=== PATIENT | male | born 1980 | race Caucasian/White ===

== ENCOUNTER 2016-11-03 23:06 | Inpatient (IN) | payer MEDICAID, OTHER ==
[~2016-11-03] VITALS: Ht 170.2 cm; Wt 71.3 kg
[2016-11-04] MEDS ORDERED: ONDANSETRON 4 MG INJ IV STA (01:13)
[2016-11-04] MEDS ORDERED: morphine 4 MG/ML VIAL IV STA ×2 (01:13→04:01)
[2016-11-04] MEDS ORDERED: SOD CHLORIDE 0.9% 1,000 ML IV STA (01:13)
--- NOTE | 2016-11-04 01:28 | ERD ---
ER Documentation Chief Complaint Date/Time DATE: 11/04/16 TIME: 01:26 Chief Complaint LOWER ABD PAIN FOR THE PAST 3 DAYS. NAUSEA NO VOMTIING. MILD DYSURIA HPI 36-year-old male presents here in emergency department for complaints of lower abdominal pain nausea and vomiting started 3 days ago. Patient is a chronic alcoholic drinker, drinks 3-4 bottles a 24 ounce beer every day. Patient is complaining of abdominal pain, cramping pain, 6/10 scale, accompanied with nausea vomiting. Is any diarrhea constipation dysuria or hematuria. Patient denies any dizziness. Patient denies any fever or chills. ROS All systems reviewed and are negative except as per history of present illness. Medications Home Meds Reported Medications [none] Unknown Strength No Conflict Check 11/04/16 Allergies Allergies: Coded Allergies: No Known Allergy (Unverified , 11/04/16) PMhx/Soc Hx Miscellaneous Medical Probl: Yes (pancreatitis) Hx Alcohol Use: Yes (daily ) Hx Substance Use: No Hx Tobacco Use: No Smoking Status: Never smoker FmHx Family History: No coronary disease, No diabetes, No other Physical Exam Vitals Vital Signs Date Time Temp Pulse Resp B/P Pulse Ox O2 Delivery O2 Flow Rate FiO2 11/03/16 23:09 97.8 68 21 162/91 100 Physical Exam GENERAL: The patient is well developed and appropriate for usual state of health, in no apparent distress. CHEST: Clear to auscultation bilaterally. There are no rales, wheezes or rhonchi. HEART: Regular rate and rhythm. No murmurs, clicks, rubs or gallops. No S3 or S4. ABDOMEN: Soft, nontender and nondistended. Good bowel sounds. No rebound or guarding. No gross peritonitis. No gross organomegaly or masses. No Carbone sign or McBurney point tenderness. BACK: No midline or flank tenderness. EXTREMITIES: Equal pulses bilaterally. There is no peripheral clubbing, cyanosis or edema. No focal swelling or erythema. Full range of motion. Grossly neurovascularly intact. NEURO: Alert and oriented. Cranial nerves 2-12 intact. Motor strength in all 4 extremities with 5/5 strength. Sensation grossly intact. Normal speech and gait. SKIN: There is no apparent rash or petechia. The skin is warm and dry. HEMATOLOGIC AND LYMPHATIC: There is no evidence of excessive bruising or lymphedema. No gross cervical, axillary, or inguinal lymphadenopathy. Result Diagram: 11/04/16 0145 11/04/16 0145 Results 24 hrs Laboratory Tests Test 11/04/16 01:45 Alanine Aminotransferase (ALT/SGPT) 75IU/L Albumin 4.0g/dl Albumin/Globulin Ratio 1.33 Alkaline Phosphatase 74IU/L Anion Gap 16 Aspartate Amino Transf (AST/SGOT) 50IU/L Basophils # 0.010^3/ul Basophils % 0.1% Blood Urea Nitrogen 9mg/dl Calcium Level 8.5mg/dl Carbon Dioxide Level 26mmol/L Chloride Level 104mmol/L Creatinine 0.69mg/dl Direct Bilirubin 0.00mg/dl Eosinophils # 0.010^3/ul Eosinophils % 0.1% Globulin 3.00g/dl Glucose Level 115mg/dl Hematocrit 45.4% Hemoglobin 16.9g/dl Indirect Bilirubin 0.7mg/dl Lipase Pending Lymphocytes # 0.810^3/ul Lymphocytes % 5.6% Mean Corpuscular Hemoglobin 32.1pg Mean Corpuscular Hemoglobin Concent 37.2g/dl Mean Corpuscular Volume 86.1fl Mean Platelet Volume 11.0fl Monocytes # 0.510^3/ul Monocytes % 3.7% Neutrophils # 13.010^3/ul Neutrophils % 90.2% Nucleated Red Blood Cells # 0.010^3/ul Nucleated Red Blood Cells % 0.0/100WBC Platelet Count 56883^3/UL Potassium Level 3.7mmol/L Red Blood Count 5.2710^6/ul Red Cell Distribution Width 12.4% Sodium Level 142mmol/L Total Bilirubin 0.7mg/dl Total Protein 7.0g/dl Urine Bilirubin 1+ Urine Clarity CLEAR Urine Color YELLOW Urine Glucose NEGATIVE% Urine Hemoglobin TRACE Urine Ictotest Pending Urine Ketones 3+ Urine Leukocyte Esterase NEGATIVE Urine Microscopic RBC Pending Urine Microscopic WBC Pending Urine Nitrite NEGATIVE Urine Specific [place] 1.025 Urine Total Protein 2+ Urine Urobilinogen 4.0 E.U./dL Urine pH 6.0 White Blood Count 14.410^3/ul Current Medications Medications (Trade) Dose Ordered Sig/Florentin Route PRN Reason Start Time Stop Time Status Last Admin Dose Admin Sodium Chloride (NS) 1,000 ml @ 1,000 mls/hr Q1H STAT IV 11/04/16 01:13 11/04/16 02:12 DC 11/04/16 01:49 Morphine Sulfate (morphine) 4 mg ONCE STAT IV 11/04/16 01:13 11/04/16 01:15 DC 11/04/16 01:49 Ondansetron HCl (Zofran Inj) 4 mg ONCE STAT IV 11/04/16 01:13 11/04/16 01:15 DC 11/04/16 01:49 Patient was given medication for pain here in emergency department, after treatment, patient verbalized feeling much better. Patient's pain is improved.Patient was given Zofran here in the emergency department. After treatment, patient was able to tolerate po fluids here in the emergency department without any vomiting. There is no signs and symptoms of dehydration. Normal saline IV bolus was given here in emergency department for rehydration, patient tolerated IV fluids. PROCEDURE: CT Abdomen and pelvis without contrast. CLINICAL INDICATION: Abdominal pain. TECHNIQUE: CT scan of the abdomen and pelvis was performed on a multi- detector high-resolution CT scanner. Contiguous axial images were obtained from the lung bases to the ischial tuberosities without intravenous contrast. Coronal and sagittal reformatted images were also obtained. Images were reviewed on the PACS workstation. One or more of the following dose reduction techniques were used: - Automated exposure control. - Adjustment of the mA and/or kV according to patient size. - Use of iterative reconstruction technique. Exam CTD/vol = 7.56 mGy. Total exam DLP = 459.15 mGy-cm. COMPARISON: None. FINDINGS: Evaluation of the lung bases demonstrates mild bibasilar atelectasis. Abdomen: The liver is normal in size and diffusely low in attenuation consistent with fatty infiltration. There is no focal mass or dilatation of the biliary tree. The gallbladder is not distended. The pancreas is diffusely edematous with moderate surrounding stranding and mild free fluid extending along the left anterior pararenal spaces and pericolic gutter. The spleen and bilateral adrenal glands are within normal limits. Bilateral kidneys are normal in size with no contour deforming mass identified. There is no radiopaque renal or ureteral calculus identified. There is no hydronephrosis or hydroureter. There is no retroperitoneal adenopathy. The abdominal aorta is of normal caliber. There is no abnormal bowel wall thickening or distension. There is no bowel obstruction or free air. A normal appendix is partially visualized. There is no diverticulosis or diverticulitis. Pelvis: The bladder is unremarkable. There is moderate pelvic free fluid. The prostate and seminal vesicles are within normal limits. There is no significant pelvic adenopathy. Evaluation of the osseous structures demonstrates no suspicious lytic or blastic lesion. IMPRESSION: Pancreatitis with moderate surrounding stranding and mild free fluid. Fatty infiltration of the liver. Moderate pelvic free fluid. Mild bibasilar atelectasis. .Aleksandr Diego MD, Date Time Electronically viewed and signed by .Aleksandr Diego MD, MD on 11/04/2016 02:27 .T/ CC: TESSA MELVIN NP Procedures/MDM Medical Decision Making: Patient has acute pancreatitis, most likely from drinking alcohol, patient will be admitted to the hospital for further management and treatment. Patient will be transferred to ER 1 for further evaluation and management and possible admission, presented the case to my attending physician Dr Abbasi, will facilitate patient's admission. Departure Diagnosis: Primary Impression: Acute pancreatitis Pancreatitis type: alcohol induced Acute pancreatitis complication: unspecified Qualified Code: K85.20 - Alcohol-induced acute pancreatitis, unspecified complication status Condition: Fair TESSA MELVIN NP Nov 04, 2016 01:28
[2016-11-04 02:25] LABS: ADD SCAN DIFF NO
[2016-11-04 02:27] LABS: BASOPHILS % 0.1 % (0.0-2.0); EOSINOPHILS % 0.1 % (0.0-7.0); HEMATOCRIT 45.4 % (42.0-52.0); HEMOGLOBIN 16.9 g/dl (14.0-18.0); LYMPHOCYTES # 0.8 10^3/ul (0.8-2.9); LYMPHOCYTES % 5.6 % (15.0-51.0); MEAN CORPUSCULAR HEMOGLOBIN 32.1 pg (29.0-33.0); MEAN CORPUSCULAR HGB CONC 37.2 g/dl (32.0-37.0); MEAN CORPUSCULAR VOLUME 86.1 fl (82.0-101.0); MONOCYTE # 0.5 10^3/ul (0.3-0.9); MONOCYTES % 3.7 % (0.0-11.0); NEUTROPHILS % 90.2 % (39.0-77.0); PLATELET COUNT 217 10^3/UL (140-415); RED BLOOD COUNT 5.27 10^6/ul (4.70-6.10); RED CELL DISTRIBUTION WIDTH 12.4 % (11.5-14.5); WHITE BLOOD COUNT 14.4 10^3/ul (4.8-10.8)
--- NOTE | 2016-11-04 02:28 | RADRPT ---
PROCEDURE: CT Abdomen and pelvis without contrast. CLINICAL INDICATION: Abdominal pain. TECHNIQUE: CT scan of the abdomen and pelvis was performed on a multi-detector high-resolution CT scanner. Contiguous axial images were obtained from the lung bases to the ischial tuberosities wit hout intravenous contrast. Coronal and sagittal reformatted images were also obtained. Images were reviewed on the PACS workstation. One or more of the following dose reduction techniques were used: - Automated exposure control. - Adjustment of the mA and/or kV according to patient size. - Use of iterative reconstruction technique. Exam CTD/vol = 7.56 mGy. Total exam DLP = 459.15 mGy-cm. COMPARISON: None. FINDINGS: Evaluation of the lung bases demonstrates mild bibasilar atelectasis. Abdomen: The liver is normal in size and diffusely low in attenuation consistent with fatty infiltr ation. There is no focal mass or dilatation of the biliary tree. The gallbladder is not distended. The pancreas is diffusely edematous with moderate surrounding stranding and mild free fluid extend ing along the left anterior pararenal spaces and pericolic gutter. The spleen and bilateral adrenal glands are within normal limits. Bilateral kidneys are normal in size with no contour deforming ma ss identified. There is no radiopaque renal or ureteral calculus identified. There is no hydroneph rosis or hydroureter. There is no retroperitoneal adenopathy. The abdominal aorta is of normal javier iber. There is no abnormal bowel wall thickening or distension. There is no bowel obstruction or free air . A normal appendix is partially visualized. There is no diverticulosis or diverticulitis. Pelvis: The bladder is unremarkable. There is moderate pelvic free fluid. The prostate and semina l vesicles are within normal limits. There is no significant pelvic adenopathy. Evaluation of the osseous structures demonstrates no suspicious lytic or blastic lesion. IMPRESSION: Pancreatitis with moderate surrounding stranding and mild free fluid. Fatty infiltration of the liver. Moderate pelvic free fluid. Mild bibasilar atelectasis. .Aleksandr Diego MD, MD Date Time Electronically viewed and signed by .Aleksandr Diego MD, MD on 11/04/2016 02:27 .T/
[2016-11-04 02:59] LABS: ADD UMIC YES; URINE BILIRUBIN (Dip) 1+ (NEGATIVE); URINE BLOOD (Dip) TRACE (NEGATIVE); URINE COLOR YELLOW (YELLOW); URINE GLUCOSE (Dip) NEGATIVE (NEGATIVE); URINE KETONES (Dip) 3+ (NEGATIVE); URINE LEUKOCYTE ESTERASE (Dip) NEGATIVE (NEGATIVE); URINE NITRITE (Dip) NEGATIVE (NEGATIVE); URINE TOTAL PROTEIN (Dip) 2+ (NEGATIVE); URINE UROBILINOGEN (Dip) 4.0 E.U./dL (0.1-1.0)
[2016-11-04 03:23] LABS: POTASSIUM 3.7 mmol/L (3.5-5.1)
[2016-11-04 03:25] LABS: CREATININE 0.69 mg/dl (0.61-1.24)
[2016-11-04 03:26] LABS: ALBUMIN/GLOBULIN RATIO 1.33; BILIRUBIN,INDIRECT 0.7 mg/dl (0-1.1); BILIRUBIN,TOTAL 0.7 mg/dl (0.2-1.3); CALCIUM 8.5 mg/dl (8.4-10.2)
[2016-11-04 04:09] LABS: BACTERIA,URINE FEW; ICTOTEST NEGATIVE (NEGATIVE); MUCUS,URINE MANY; SQUAMOUS EPITHELIAL CELL,UR FEW
[2016-11-04] MEDS ORDERED: morphine 2 MG INJ IV PRN (08:30)
[2016-11-04] MEDS ORDERED: DOCUSATE SODIUM 100 MG CAP PO PRN (10:00)
[2016-11-04] MEDS ORDERED: ACETAMINOPHEN 325 MG TAB PO PRN (10:00)
[2016-11-04] MEDS ORDERED: NACL 0.9% 3 ML SYG IV SCH (10:00)
[2016-11-04 10:30] VITALS: TEMP 98
[2016-11-04] MEDS: morphine 2 MG INJ IV PRN ×4 (11:50→22:16)
[2016-11-04] MEDS: DEXTROSE 5%-0.45% NACL 1,000 ML IV SCH ×2 (11:50→23:00)
--- NOTE | 2016-11-04 11:56 | CONS ---
Date/Time of Note Date/Time of Note DATE: 11/04/16 TIME: 11:55 Assessment/Plan Assessment/Plan Additional Assessment/Plan Abdomina pain/nausea/vomiting Pancreatitis Rule out choledocholithiasis IVF Hydration Nausea and pain control NPO till pain free Review MRCP ERCP if clinically indicated, pt advised of R/B/A of procedure and she provides informed consent to proceed Monitor LFTs, amylase, lipase Recommend Surgery consult Alcohol abuse Management per Primary Encourage abstinence Further recommendations depend on clinical course Patient seen in collaboration with Dr. Mckenzie Consultation Date/Type/Reason Admit Date/Time Nov 04, 2016 at 05:36 Type of Consultation: Gastroenterology Reason for Consultation Pancreatitis Hx of Present Illness Mr.Juan Luna is a 36-year-old male that presented to the emergency room secondary to abdominal pain, nausea, vomiting. Patient stated the symptoms started 3 days ago and progressively got worse. Patient reports slight fever. Patient denies chills, hematochezia,, hematemesis, sick contacts versus. Patient does report alcohol consumption. Patient states he drinks about a sixpack of beer every day. Patient reports previous episode of abdominal pain nearly 4 months ago. Patient has a history of inpatient treatment for pancreatitis secondary to alcohol consumption. Patient denies other chronic condition. At bedside patient reports diffuse abdominal pain. MRCP in process. Social History Alcohol Use: heavy (6 pack per day) Smoking Status: Never smoker Exam/Review of Systems Vital Signs Vitals Vital Signs Date Time Temp Pulse Resp B/P Pulse Ox O2 Delivery O2 Flow Rate FiO2 11/04/16 10:30 98.0 71 18 160/90 98 Room Air Exam Constitutional: alert, oriented, well developed Psych: nl mood/affect Head: normocephalic Eyes: EOMI, nl conjunctiva, nl lids ENMT: nl external ears & nose, nl lips & teeth, nl nasal mucosa & septum Respiratory: clear to auscultation, normal air movement Cardiovascular: regular rate and rhythm Gastrointestinal: soft, diffuse tenderness Musculoskeletal: nl extremities to inspection Neurological: CELLOPHANE TESTER II-XII intact Results Result Diagram: 11/04/16 0145 11/04/16144 Results 24 hrs Laboratory Tests Test 11/04/16 01:45 Alanine Aminotransferase (ALT/SGPT) 75 H Albumin 4.0 Albumin/Globulin Ratio 1.33 Alkaline Phosphatase 74 Anion Gap 16 Aspartate Amino Transf (AST/SGOT) 50 H Basophils # 0.0 Basophils % 0.1 Blood Urea Nitrogen 9 Calcium Level 8.5 Carbon Dioxide Level 26 Chloride Level 104 Creatinine 0.69 Direct Bilirubin 0.00 Eosinophils # 0.0 Eosinophils % 0.1 Globulin 3.00 Glucose Level 115 Hematocrit 45.4 Hemoglobin 16.9 Indirect Bilirubin 0.7 Lipase 4586 H Lymphocytes # 0.8 Lymphocytes % 5.6 L Mean Corpuscular Hemoglobin 32.1 Mean Corpuscular Hemoglobin Concent 37.2 H Mean Corpuscular Volume 86.1 Mean Platelet Volume 11.0 H Monocytes # 0.5 Monocytes % 3.7 Neutrophils # 13.0 H Neutrophils % 90.2 H Nucleated Red Blood Cells # 0.0 Nucleated Red Blood Cells % 0.0 Platelet Count 217 Potassium Level 3.7 Red Blood Count 5.27 Red Cell Distribution Width 12.4 Sodium Level 142 Total Bilirubin 0.7 Total Protein 7.0 Urine Bacteria FEW Urine Bilirubin 1+ H Urine Clarity CLEAR Urine Color YELLOW Urine Glucose NEGATIVE Urine Hemoglobin TRACE Urine Ictotest NEGATIVE Urine Ketones 3+ H Urine Leukocyte Esterase NEGATIVE Urine Microscopic RBC 2-5 Urine Microscopic WBC 0-2 Urine Mucus MANY Urine Nitrite NEGATIVE Urine Specific [place] 1.025 Urine Squamous Epithelial Cells FEW Urine Total Protein 2+ H Urine Urobilinogen 4.0 E.U./dL H Urine pH 6.0 White Blood Count 14.4 H Medications Medications Current Medications Dextrose/Sodium Chloride (D5-1/2ns) 1,000 ml @ 75 mls/hr [id number] IV Last administered on 11/04/16 11:50; Admin Dose 75 MLS/HR; Start 11/04/16 at 09:40 Ondansetron HCl (Zofran Inj) 4 mg Q6H PRN IV NAUSEA AND/OR VOMITING; Start at 10:00 Acetaminophen (Tylenol Tab) 650 mg Q6H PRN PO PAIN LEVEL 1-3 OR FEVER; Start at 10:00 Morphine Sulfate (morphine) 2 mg Q4H PRN IV SEVERE PAIN LEVEL 7-10 Last administered on 11/04/16 11:50; Admin Dose 2 MG; Start 11/04/16 at 10:00 Docusate Sodium (Colace) 100 mg Q12H PRN PO CONSTIPATION; Start 11/04/16 at 10: 00 Pantoprazole 40 mg 40 mg DAILY@06 IV ; Start 11/05/16 at 06:00 Multivitamins/ Thiamine HCl/ Folic Acid/Sodium Chloride (Mvi-12 Adult/ Vitamin B1/Folic Acid/NS) 1,011.2 ml @ 100 mls/ hr DAILY@09 IVPB ; Start 11/05/16 at 09 :00 MARIA DE JESUS DEL VALLE Nov 04, 2016 11:56
[2016-11-04] MEDS: ONDANSETRON 4 MG INJ IV PRN (12:02)
[2016-11-04 12:30] VITALS: BP 143/87; PULSE 87; RESP 20; Ht 170.2 cm; Wt 71.3 kg
--- NOTE | 2016-11-04 15:54 | RADRPT ---
PROCEDURE: MRCP. CLINICAL INDICATION: Abdominal pain. Pancreatitis. TECHNIQUE: MRCP was performed. The following sequences were obtained: Three plane gradient echo localizers, coronal gradient echo images, breath hold axial T2-weighted fat saturation images, maris nal T2-weighted images, axial 3-D LAVA images, axial T2-weighted breath hold fast spin echo images, and 3-D coronal rotating MIP images of the biliary tree. COMPARISON: CT scan of the abdomen and pelvis done earlier the same day which demonstrated pancrea titis with surrounding edema and free fluid, and fatty liver. FINDINGS: The liver is normal in size. There is abnormal signal within the liver consistent with fatty metamo rphosis. There is no focal hepatic lesion The spleen is normal in size and homogeneous in signal intensity. There are no gallstones in the gallbladder. The biliary tree is not dilated. No intrahepatic nor extrahepatic biliary dilatation is present. The pancreatic duct is not dilated. There is pancreatitis with enlargement of the head and body of the pancreas, surrounding edema, and a small amount of adjacent fluid. The kidneys are grossly normal. The abdominal aorta is not dilated. IMPRESSION: 1. Fatty metamorphosis of the liver. 2. Normal bile ducts. 3. Acute pancreatitis. 4. Otherwise unremarkable study. RPTAT: QQ .Cornel Watson MD, MD Date Time Electronically viewed and signed by .Cornel Watson MD, on 11/04/2016 15:54 .R/
[2016-11-04] MEDS ORDERED: LORAZEPAM 2 MG INJ IV PRN (17:00)
--- NOTE | 2016-11-04 18:40 | HP ---
DATE OF ADMISSION: 11/04/2016 ENVIRONMENTAL HEALTH INSPECTOR: GI. CHIEF COMPLAINT: Abdominal pain with nausea and vomiting. HISTORY OF PRESENT ILLNESS: This is a 36-year-old gentleman with past medical history of pancreatit is/alcoholic pancreatitis and continues alcohol consumption, who presents to [facility] secondary to having 2 days of abdominal pain accompanied with nausea and yellowish emesis, not accompanied with any hematochezia or hematemesis. The patient upon arrival to the emergency room, was found to have lipase of 4586. He was treated with morphine, normal saline, and Zofran. He was admitted to Med/Surg for further evaluation and treatment. At this time, the patient continues to c omplain of having midepigastric pain. He denies having any chest pain, shortness of breath. Positi ve for nausea ____ vomiting. No headache, dizziness, lightheadedness. No change in visual acuity, diplopia, photophobia. No dysuria, hematuria, urgency, incontinence. No change in the color of sto ol. No neck pain, no restricted range of motion in upper or lower extremity nor his neck. No recen t travel history. No sick contact. He still admits that he drinks about a 6-pack of beer per day. He does not smoke. No illicit drugs, and does not drink any hard liquor. PAST MEDICAL AND SURGICAL HISTORY: 1. History of pancreatitis. 2. Continues alcohol consumption. MEDICATIONS: None. FAMILY HISTORY: Noncontributory. SOCIAL HISTORY: Positive for drinking a 6-pack of beer daily. No smoking, no illicit drugs. REVIEW OF SYSTEMS: As above per HPI, otherwise 12 review of systems has been found to be negative. PHYSICAL EXAMINATION: VITAL SIGNS: Temperature 99.0, pulse 87, respirations 20, blood pressure 143/____, oxygen 99% on ro om air. GENERAL APPEARANCE: The patient is lying in bed comfortably without any acute distress. He is awak e, alert, oriented. He is able to answer my questions properly. EYES AND ENT: Conjunctivae and lids are normal. Pupils are normal. Extraocular normal. Hearing gr ossly normal. Lips are normal. Oral mucosa is moist. NECK: Supple. Trachea is midline. No lymphadenopathy. RESPIRATORY: Effort is normal. Clear to auscultation bilaterally. CARDIOVASCULAR: Normal S1, S2. Regular rhythm and rate. No murmur, no bruits, no edema. Peripher al pulses, radial pulses palpable. Cap refill is normal. CHEST: Normal expansion of thorax during inspiration. GASTROINTESTINAL: Abdomen soft. Tenderness in the midepigastric and right upper quadrant. No guar ding, no rebound. GENITOURINARY: Deferred. MUSCULOSKELETAL: Upper and lower extremities within normal limits. Full range of motion, strength 5/5 both upper and lower extremities. NEUROLOGIC: Cranial nerves II through XII are grossly intact. PSYCHIATRIC: Normal judgment and insight. Alert and oriented x3. Mood and affect is normal. LABORATORY WORK AND IMAGING: WBC 14.4, hemoglobin 16.9, hematocrit 45.4, platelet 217. Sodium 142, potassium 3.7, chloride 104, bicarbonate 26, BUN 9, creatinine 0.69, glucose ____, calcium 8.5, AST 50, ALT 75, lipase 4586. CT abdomen and pelvis showed pancreatitis with moderate surrounding stran ding and mild free fluid. Fatty infiltration of the liver, moderate pelvic free fluid, mild basilar atelectasis. MRCP showed fatty metamorphosis of the liver, normal bile duct, acute pancreatitis. ASSESSMENT AND PLAN: 1. Alcoholic pancreatitis. Patient has been made n.p.o., IV fluid, pain medication. Patient has b een started on banana bag. Gastroenterology has been consulted. Alcohol cessation has been advised . 2. Alcohol dependency. The patient has been started on Ativan, Librium. Alcohol cessation has bee n advised. 3. Gastrointestinal prophylaxis, the patient has been started on proton pump inhibitor. 4. For deep venous thrombosis prophylaxis, on sequential compression devices. 5. I will continue to monitor patient closely. Further recommendations, management, and treatment as per clinical course. Dictated By: CHRISTY LACEY MD PN/NTS Conf#: [id number] DID#: [id number]
[2016-11-04 20:54] VITALS: BP 124/75; RESP 18
[2016-11-04] MEDS: PIPER-TAZO 3.375 GM IV (PMX) 100 ML IVPB SCH (21:07)
[2016-11-05] MEDS: morphine 2 MG INJ IV PRN ×6 (00:18→21:39)
[2016-11-05] MEDS: DEXTROSE 5%-0.45% NACL 1,000 ML IV SCH ×2 (04:23→20:53)
[2016-11-05] MEDS: PANTOPRAZOLE 40 MG INJ IV SCH (06:07)
[2016-11-05] MEDS: PIPER-TAZO 3.375 GM IV (PMX) 100 ML IVPB SCH ×3 (06:07→21:39)
[2016-11-05 07:30] VITALS: BP 113/65; RESP 20
[2016-11-05] MEDS ORDERED: INFLUENZA VIRUS VACCINE 0.5 ML (DISPENSING) IM* ONE (09:00)
--- NOTE | 2016-11-05 10:18 | PN ---
Date/Time of Note Date/Time of Note DATE: 11/05/16 TIME: 10:06 Assessment/Plan VTE Prophylaxis VTE Prophylaxis Intervention: SCD's Lines/Catheters IV Catheter Type (from Nrsg): Peripheral IV Assessment/Plan Assessment/Plan Abdomina pain/nausea/vomiting Pancreatitis IVF Hydration Nausea and pain control start with clear liquids Monitor LFTs, amylase, lipase Alcohol abuse Management per Primary Subjective 24 Hr Interval Summary Free Text/Dictation * course reviewed with nursing staff * Patient seen and examined * pain is improved considerably * Lipase improved from 4586 to 860 * MRCP * Fatty metamorphosis of the liver. . Normal bile ducts. Acute pancreatitis. Otherwise unremarkable study. Exam/Review of Systems Vital Signs Vitals Vital Signs Date Time Temp Pulse Resp B/P Pulse Ox O2 Delivery O2 Flow Rate FiO2 11/05/16 07:30 98.6 64 20 113/65 97 11/04/16 12:30 Room Air Intake and Output 11/04/16 11/04/16 11/05/16 14:59 22:59 06:59 Intake Total 400 ml 860 ml Output Total 300 ml 450 ml Balance 100 ml 410 ml Exam GENERAL APPEARANCE: The patient is lying in bed comfortably without any acute distress. He is awake, alert, oriented. He is able to answer my questions properly. RESPIRATORY: Effort is normal. Clear to auscultation bilaterally. CARDIOVASCULAR: Regular rhythm and rate. No murmur CHEST: Clear breath sounds ,no crackles GASTROINTESTINAL: Abdomen soft. Tenderness in the midepigastric and right upper quadrant. No guarding, no rebound. Results Result Diagram: 11/04/16 0145 11/04/16 0145 Medications Medications Current Medications Dextrose/Sodium Chloride (D5-1/2ns) 1,000 ml @ 75 mls/hr [id number] IV Last administered on 11/05/16 04:23; Admin Dose 75 MLS/HR; Start 11/04/16 at 09:40 Ondansetron HCl (Zofran Inj) 4 mg Q6H PRN IV NAUSEA AND/OR VOMITING Last administered on 11/04/16 12:02; Admin Dose 4 MG; Start 11/04/16 at 10:00 Acetaminophen (Tylenol Tab) 650 mg Q6H PRN PO PAIN LEVEL 1-3 OR FEVER; Start at 10:00 Morphine Sulfate (morphine) 2 mg Q4H PRN IV SEVERE PAIN LEVEL 7-10 Last administered on 11/05/16 08:39; Admin Dose 2 MG; Start 11/04/16 at 10:00 Docusate Sodium (Colace) 100 mg Q12H PRN PO CONSTIPATION; Start 11/04/16 at 10: 00 Pantoprazole 40 mg 40 mg DAILY@06 IV Last administered on 11/05/16 06:07; Admin Dose 40 MG; Start 11/05/16 at 06:00 Multivitamins/ Thiamine HCl/ Folic Acid/Sodium Chloride (Mvi-12 Adult/ Vitamin B1/Folic Acid/NS) 1,011.2 ml @ 100 mls/ hr DAILY@09 IVPB ; Start 11/05/16 at 09 :00 Lorazepam (Ativan) 1 mg Q6H PRN IV AGITATION/ANXIETY; Start 11/04/16 at 17:00 Chlordiazepoxide 25 mg 25 mg TID PO ; Start 11/05/16 at 21:00 Piperacillin Sod/ Tazobactam Sod (Zosyn 3.375gm/ 100 ml (Pmx)) 100 ml @ 200 mls /hr Q8 IVPB Last administered on 11/05/16 06:07; Admin Dose 200 MLS/HR; Start 11/04/16 at 22:00 Morphine Sulfate (morphine) 2 mg Q2H PRN IV PAIN Last administered on 02:43; Admin Dose 2 MG; Start 11/04/16 at 19:00 PRINCESS RAMIREZ MD Nov 05, 2016 10:17 PRINCESS RAMIREZ MD Nov 05, 2016 10:17
[2016-11-05] MEDS: MULTIVITAMINS 10 ML, THIAMINE 100 MG, FOLIC ACID 1 MG in SOD CHLORIDE 0.9% 1,000 ML IVPB SCH (10:24)
[2016-11-05 10:28] LABS: ADD SCAN DIFF NO
[2016-11-05 10:38] LABS: BASOPHILS % 0.3 % (0.0-2.0); EOSINOPHILS # 0.1 10^3/ul (0.0-0.5); EOSINOPHILS % 1.2 % (0.0-7.0); HEMATOCRIT 43.7 % (42.0-52.0); HEMOGLOBIN 15.6 g/dl (14.0-18.0); LYMPHOCYTES # 1.4 10^3/ul (0.8-2.9); LYMPHOCYTES % 14.3 % (15.0-51.0); MEAN CORPUSCULAR HEMOGLOBIN 31.3 pg (29.0-33.0); MEAN CORPUSCULAR HGB CONC 35.7 g/dl (32.0-37.0); MEAN CORPUSCULAR VOLUME 87.8 fl (82.0-101.0); MEAN PLATELET VOLUME 10.5 fl (7.4-10.4); MONOCYTE # 0.7 10^3/ul (0.3-0.9); MONOCYTES % 6.9 % (0.0-11.0); NEUTROPHIL # 7.6 10^3/ul (1.6-7.5); PLATELET COUNT 187 10^3/UL (140-415); RED BLOOD COUNT 4.98 10^6/ul (4.70-6.10); RED CELL DISTRIBUTION WIDTH 12.8 % (11.5-14.5); WHITE BLOOD COUNT 9.9 10^3/ul (4.8-10.8)
[2016-11-05 10:40] LABS: ALBUMIN 4.2 g/dl (3.3-4.9)
[2016-11-05 10:42] LABS: POTASSIUM 3.7 mmol/L (3.5-5.1)
[2016-11-05 10:43] LABS: ALBUMIN/GLOBULIN RATIO 1.2; BILIRUBIN,INDIRECT 1.1 mg/dl (0-1.1); BILIRUBIN,TOTAL 1.1 mg/dl (0.2-1.3); CREATININE 0.71 mg/dl (0.61-1.24); TOTAL PROTEIN 7.7 g/dl (6.1-8.1)
[2016-11-05 10:44] LABS: CHOL/HDL RATIO 4.3 RATIO; MAGNESIUM 2.4 mg/dl (1.7-2.5)
--- NOTE | 2016-11-05 14:11 | PN ---
Date/Time of Note Date/Time of Note DATE: 11/05/16 TIME: 14:07 Assessment/Plan VTE Prophylaxis VTE Prophylaxis Intervention: SCD's Lines/Catheters IV Catheter Type (from Nrs): Peripheral IV Assessment/Plan Chief Complaint/Hosp Course ASSESSMENT AND PLAN: 1. Alcoholic pancreatitis. n.p.o., IV fluid, pain medication. Continue banana bag. Gastroenterology has been consulted. Improvement in lipase level, follow-up lipase Start ice chips 2. Alcohol dependency. The patient has been started on Ativan, Librium. Alcohol cessation has been advised. 3. Gastrointestinal prophylaxis, the patient has been started on proton pump inhibitor. 4. For deep venous thrombosis prophylaxis, on sequential compression devices. will continue to monitor patient closely. Further recommendations, management , and treatment as per clinical course. Problems: Subjective 24 Hr Interval Summary Free Text/Dictation Patient denies any chest pain or shortness of breath Improvement in abdominal discomfort No nausea vomiting diarrhea Exam/Review of Systems Vital Signs Vitals Vital Signs Date Time Temp Pulse Resp B/P Pulse Ox O2 Delivery O2 Flow Rate FiO2 11/05/16 07:30 98.6 64 20 113/65 97 11/04/16 12:30 Room Air Intake and Output 11/04/16 11/04/16 11/05/16 14:59 22:59 06:59 Intake Total 400 ml 860 ml Output Total 300 ml 450 ml Balance 100 ml 410 ml Exam General: The patient is well-developed, Not in acute distress. HEENT: Atraumatic, normocephalic. The pupils are equal and round . Neck: Supple with full range of motion. Chest: Normal expansion of the thorax during inspiration Lungs: Clear to auscultation bilaterally Heart: Normal S1-S2, Regular rhythm and rate. Abdomen: Soft , nontender, nondistended , bowel sounds are present. Extremities: Normal to inspection, no edema no cyanosis Neurologic: Normal mental status,The patient is awake, alert and oriented . Results Result Diagram: 11/05/16 1010 11/05/16 1010 Results 24 hrs Laboratory Tests Test 11/05/16 10:10 White Blood Count 9.9 # Red Blood Count 4.98 Hemoglobin 15.6 Hematocrit 43.7 Mean Corpuscular Volume 87.8 Mean Corpuscular Hemoglobin 31.3 Mean Corpuscular Hemoglobin Concent 35.7 Red Cell Distribution Width 12.8 Platelet Count 187 Mean Platelet Volume 10.5 H Neutrophils % 77.0 Lymphocytes % 14.3 L Monocytes % 6.9 Eosinophils % 1.2 Basophils % 0.3 Nucleated Red Blood Cells % 0.0 Neutrophils # 7.6 H Lymphocytes # 1.4 Monocytes # 0.7 Eosinophils # 0.1 Basophils # 0.0 Nucleated Red Blood Cells # 0.0 Sodium Level 137 Potassium Level 3.7 Chloride Level 98 Carbon Dioxide Level 26 Anion Gap 17 H Blood Urea Nitrogen 10 Creatinine 0.71 Glucose Level 102 Calcium Level 9.0 Magnesium Level 2.4 Total Bilirubin 1.1 Direct Bilirubin 0.00 Indirect Bilirubin 1.1 Aspartate Amino Transf (AST/SGOT) 35 Alanine Aminotransferase (ALT/SGPT) 57 Alkaline Phosphatase 75 Total Protein 7.7 Albumin 4.2 Globulin 3.50 H Albumin/Globulin Ratio 1.20 Triglycerides Level 99 Cholesterol Level 182 LDL Cholesterol, Calculated 120 HDL Cholesterol 42 Cholesterol/HDL Ratio 4.3 Amylase Level 240 H Lipase 860 H Medications Medications Current Medications Dextrose/Sodium Chloride (D5-1/2ns) 1,000 ml @ 75 mls/hr [id number] IV Last administered on 11/05/16 04:23; Admin Dose 75 MLS/HR; Start 11/04/16 at 09:40 Ondansetron HCl (Zofran Inj) 4 mg Q6H PRN IV NAUSEA AND/OR VOMITING Last administered on 11/04/16 12:02; Admin Dose 4 MG; Start 11/04/16 at 10:00 Acetaminophen (Tylenol Tab) 650 mg Q6H PRN PO PAIN LEVEL 1-3 OR FEVER; Start at 10:00 Morphine Sulfate (morphine) 2 mg Q4H PRN IV SEVERE PAIN LEVEL 7-10 Last administered on 11/05/16 13:15; Admin Dose 2 MG; Start 11/04/16 at 10:00 Docusate Sodium (Colace) 100 mg Q12H PRN PO CONSTIPATION; Start 11/04/16 at 10: 00 Pantoprazole 40 mg 40 mg DAILY@06 IV Last administered on 11/05/16 06:07; Admin Dose 40 MG; Start 11/05/16 at 06:00 Multivitamins/ Thiamine HCl/ Folic Acid/Sodium Chloride (Mvi-12 Adult/ Vitamin B1/Folic Acid/NS) 1,011.2 ml @ 100 mls/ hr DAILY@09 IVPB Last administered on 11/05/16 10:24; Admin Dose 100 MLS/HR; Start 11/05/16 at 09:00 Lorazepam (Ativan) 1 mg Q6H PRN IV AGITATION/ANXIETY; Start 11/04/16 at 17:00 Chlordiazepoxide 25 mg 25 mg TID PO ; Start 11/05/16 at 21:00 Piperacillin Sod/ Tazobactam Sod (Zosyn 3.375gm/ 100 ml (Pmx)) 100 ml @ 200 mls /hr Q8 IVPB Last administered on 11/05/16 13:15; Admin Dose 200 MLS/HR; Start 11/04/16 at 22:00 Morphine Sulfate (morphine) 2 mg Q2H PRN IV PAIN Last administered on 02:43; Admin Dose 2 MG; Start 11/04/16 at 19:00 CHRISTY LACEY MD Nov 05, 2016 14:11
[2016-11-05 20:30] VITALS: BP_SYST 121; BP_SYST 129; BP_DIAS 81; RESP 19
[2016-11-05] MEDS: CHLORDIAZEPOXIDE 25 MG CAP PO SCH (20:52)
[2016-11-06] MEDS: morphine 2 MG INJ IV PRN ×5 (01:39→20:14)
[2016-11-06] MEDS: DEXTROSE 5%-0.45% NACL 1,000 ML IV SCH ×3 (01:40→22:45)
[2016-11-06] MEDS: ONDANSETRON 4 MG INJ IV PRN ×2 (01:43→20:12)
[2016-11-06] MEDS: PIPER-TAZO 3.375 GM IV (PMX) 100 ML IVPB SCH (05:28)
[2016-11-06] MEDS: PANTOPRAZOLE 40 MG INJ IV SCH (05:28)
[2016-11-06 07:30] VITALS: BP 108/65; RESP 18
[2016-11-06] MEDS: CHLORDIAZEPOXIDE 25 MG CAP PO SCH ×3 (08:55→21:04)
[2016-11-06] MEDS: MULTIVITAMINS 10 ML, THIAMINE 100 MG, FOLIC ACID 1 MG in SOD CHLORIDE 0.9% 1,000 ML IVPB SCH (09:44)
[2016-11-06 10:56] LABS: ADD SCAN DIFF NO
[2016-11-06 10:58] LABS: BASOPHILS % 0.4 % (0.0-2.0); EOSINOPHILS # 0.1 10^3/ul (0.0-0.5); HEMATOCRIT 42.7 % (42.0-52.0); HEMOGLOBIN 15.1 g/dl (14.0-18.0); LYMPHOCYTES # 1.1 10^3/ul (0.8-2.9); LYMPHOCYTES % 20.9 % (15.0-51.0); MEAN CORPUSCULAR HEMOGLOBIN 31.3 pg (29.0-33.0); MEAN CORPUSCULAR HGB CONC 35.4 g/dl (32.0-37.0); MEAN CORPUSCULAR VOLUME 88.4 fl (82.0-101.0); MEAN PLATELET VOLUME 10.7 fl (7.4-10.4); MONOCYTE # 0.4 10^3/ul (0.3-0.9); MONOCYTES % 6.5 % (0.0-11.0); NEUTROPHIL # 3.8 10^3/ul (1.6-7.5); PLATELET COUNT 182 10^3/UL (140-415); RED BLOOD COUNT 4.83 10^6/ul (4.70-6.10); RED CELL DISTRIBUTION WIDTH 12.7 % (11.5-14.5); WHITE BLOOD COUNT 5.4 10^3/ul (4.8-10.8)
[2016-11-06 11:19] LABS: ALBUMIN 4.2 g/dl (3.3-4.9); POTASSIUM 3.7 mmol/L (3.5-5.1)
[2016-11-06 11:21] LABS: BILIRUBIN,INDIRECT 0.8 mg/dl (0-1.1); BILIRUBIN,TOTAL 0.8 mg/dl (0.2-1.3); CREATININE 0.7 mg/dl (0.61-1.24)
[2016-11-06 11:22] LABS: ALBUMIN/GLOBULIN RATIO 1.13; CALCIUM 9.1 mg/dl (8.4-10.2); TOTAL PROTEIN 7.9 g/dl (6.1-8.1)
--- NOTE | 2016-11-06 13:19 | PN ---
Date/Time of Note Date/Time of Note DATE: 11/06/16 TIME: 13:17 Assessment/Plan VTE Prophylaxis VTE Prophylaxis Intervention: SCD's Lines/Catheters IV [facility] Type ([facility] Peripheral IV Assessment/Plan Chief Complaint/Hosp Course ASSESSMENT AND PLAN: 1. Alcoholic pancreatitis. Start clear liquid diet and advance to full if tolerated, IV fluid, pain medication. Continue banana bag. Gastroenterology has been consulted. Improvement in lipase level, follow-up lipase 2. Alcohol dependency. The patient has been started on Ativan, Librium. Alcohol cessation has been advised. 3. Gastrointestinal prophylaxis, the patient has been started on proton pump inhibitor. 4. For deep venous thrombosis prophylaxis, on sequential compression devices. will continue to monitor patient closely. Further recommendations, management , and treatment as per clinical course. Problems: Subjective 24 Hr Interval Summary Free Text/Dictation Patient denies any chest pain or shortness of breath Improvement in abdominal discomfort without any nausea vomiting Exam/Review of Systems Vital Signs Vitals Vital Signs Date Time Temp Pulse Resp B/P Pulse Ox O2 Delivery O2 Flow Rate FiO2 11/06/16 07:30 98.8 65 18 108/65 94 11/04/16 12:30 Room Air Intake and Output 11/05/16 11/05/16 11/06/16 15:00 23:00 07:00 Intake Total 100 ml 2000 ml 820 ml Output Total 800 ml 1700 ml Balance 100 ml 1200 ml -880 ml Exam General: The patient is well-developed, Not in acute distress. HEENT: Atraumatic, normocephalic. The pupils are equal and round . Neck: Supple with full range of motion. Chest: Normal expansion of the thorax during inspiration Lungs: Clear to auscultation bilaterally Heart: Normal S1-S2, Regular rhythm and rate. Abdomen: Soft , nontender, nondistended , bowel sounds are present. Extremities: Normal to inspection, no edema no cyanosis Neurologic: Normal mental status,The patient is awake, alert and oriented . Results Result Diagram: 11/06/16 1032 11/06/16 1032 Results 24 hrs Laboratory Tests Test 11/06/16 10:32 White Blood Count 5.4 # Red Blood Count 4.83 Hemoglobin 15.1 Hematocrit 42.7 Mean Corpuscular Volume 88.4 Mean Corpuscular Hemoglobin 31.3 Mean Corpuscular Hemoglobin Concent 35.4 Red Cell Distribution Width 12.7 Platelet Count 182 Mean Platelet Volume 10.7 H Neutrophils % 70.0 Lymphocytes % 20.9 Monocytes % 6.5 Eosinophils % 2.0 Basophils % 0.4 Nucleated Red Blood Cells % 0.0 Neutrophils # 3.8 Lymphocytes # 1.1 Monocytes # 0.4 Eosinophils # 0.1 Basophils # 0.0 Nucleated Red Blood Cells # 0.0 Sodium Level 139 Potassium Level 3.7 Chloride Level 101 Carbon Dioxide Level 26 Anion Gap 16 Blood Urea Nitrogen 9 Creatinine 0.70 Glucose Level 96 Calcium Level 9.1 Total Bilirubin 0.8 Direct Bilirubin 0.00 Indirect Bilirubin 0.8 Aspartate Amino Transf (AST/SGOT) 77 #H Alanine Aminotransferase (ALT/SGPT) 82 H Alkaline Phosphatase 91 Total Protein 7.9 Albumin 4.2 Globulin 3.70 H Albumin/Globulin Ratio 1.13 Lipase 462 H Medications Medications Current Medications Dextrose/Sodium Chloride (D5-1/2ns) 1,000 ml @ 75 mls/hr [id number] IV Last administered on 11/05/16 20:53; Admin Dose 75 MLS/HR; Start 11/04/16 at 09:40 Ondansetron HCl (Zofran Inj) 4 mg Q6H PRN IV NAUSEA AND/OR VOMITING Last administered on 11/06/16 01:43; Admin Dose 4 MG; Start 11/04/16 at 10:00 Acetaminophen (Tylenol Tab) 650 mg Q6H PRN PO PAIN LEVEL 1-3 OR FEVER; Start at 10:00 Morphine Sulfate (morphine) 2 mg Q4H PRN IV SEVERE PAIN LEVEL 7-10 Last administered on 11/06/16 12:10; Admin Dose 2 MG; Start 11/04/16 at 10:00 Docusate Sodium (Colace) 100 mg Q12H PRN PO CONSTIPATION; Start 11/04/16 at 10: 00 Pantoprazole 40 mg 40 mg DAILY@06 IV Last administered on 11/06/16 05:28; Admin Dose 40 MG; Start 11/05/16 at 06:00 Multivitamins/ Thiamine HCl/ Folic Acid/Sodium Chloride (Mvi-12 Adult/ Vitamin B1/Folic Acid/NS) 1,011.2 ml @ 100 mls/ hr DAILY@09 IVPB Last administered on 11/06/16 09:44; Admin Dose 100 MLS/HR; Start 11/05/16 at 09:00 Lorazepam (Ativan) 1 mg Q6H PRN IV AGITATION/ANXIETY; Start 11/04/16 at 17:00 Chlordiazepoxide (Librium) 25 mg TID PO Last administered on 11/06/16 12:10; Admin Dose 25 MG; Start 11/05/16 at 21:00 Morphine Sulfate (morphine) 2 mg Q2H PRN IV PAIN Last administered on 02:43; Admin Dose 2 MG; Start 11/04/16 at 19:00 CHRISTY LACEY MD Nov 06, 2016 13:19
--- NOTE | 2016-11-06 19:19 | CONS ---
Date/Time of Note Date/Time of Note DATE: 11/06/16 TIME: 19:15 Assessment/Plan Assessment/Plan Chief Complaint/Hosp Course Mr.Juan Luna is a 36-year-old male that presented to the emergency room secondary to abdominal pain, nausea, vomiting. Patient stated the symptoms started 3 days ago and progressively got worse. Patient reports slight fever. Patient denies chills, hematochezia,, hematemesis, sick contacts versus. Patient does report alcohol consumption. Patient states he drinks about a sixpack of beer every day. Patient reports previous episode of abdominal pain nearly 4 months ago. Patient has a history of inpatient treatment for pancreatitis secondary to alcohol consumption. Patient denies other chronic condition. At bedside patient reports diffuse abdominal pain. MRCP in process. Problems: Additional Assessment/Plan Pancreatitis Rule out choledocholithiasis Nausea and pain control Advance diet as tolerated MRCP: 1. Fatty metamorphosis of the liver. 2. Normal bile ducts. 3. Acute pancreatitis. 4. Otherwise unremarkable study. ERCP not clinically indicated Monitor LFTs, amylase, lipaset Alcohol abuse Management per Primary Encourage abstinence Further recommendations depend on clinical course Patient seen in collaboration with Dr. Mckenzie Consultation Date/Type/Reason Admit Date/Time Nov 04, 2016 at 05:36 Initial Consult Date Type of Consultation: Gastroenterology 24 HR Interval Summary Free Text/Dictation States pain improving Elevated lipase likely secondary to alcohol consumption We will start patient on soft diet and advance as tolerated Exam/Review of Systems Vital Signs Vitals Vital Signs Date Time Temp Pulse Resp B/P Pulse Ox O2 Delivery O2 Flow Rate FiO2 11/06/16 07:30 98.8 65 18 108/65 94 11/04/16 12:30 Room Air Intake and Output 11/05/16 11/05/16 11/06/16 15:00 23:00 07:00 Intake Total 100 ml 2000 ml 820 ml Output Total 800 ml 1700 ml Balance 100 ml 1200 ml -880 ml Exam Constitutional: alert, oriented, well developed Psych: nl mood/affect Head: normocephalic Eyes: EOMI, nl conjunctiva, nl lids ENMT: nl external ears & nose, nl lips & teeth, nl nasal mucosa & septum Respiratory: clear to auscultation, normal air movement Cardiovascular: regular rate and rhythm Gastrointestinal: soft, non-tender Musculoskeletal: nl extremities to inspection Neurological: FULL STACK ENGINEER II-XII intact Results Result Diagram: 11/06/16 1032 11/06/16 1032 Results 24 hrs Laboratory Tests Test 11/06/16 10:32 White Blood Count 5.4 # Red Blood Count 4.83 Hemoglobin 15.1 Hematocrit 42.7 Mean Corpuscular Volume 88.4 Mean Corpuscular Hemoglobin 31.3 Mean Corpuscular Hemoglobin Concent 35.4 Red Cell Distribution Width 12.7 Platelet Count 182 Mean Platelet Volume 10.7 H Neutrophils % 70.0 Lymphocytes % 20.9 Monocytes % 6.5 Eosinophils % 2.0 Basophils % 0.4 Nucleated Red Blood Cells % 0.0 Neutrophils # 3.8 Lymphocytes # 1.1 Monocytes # 0.4 Eosinophils # 0.1 Basophils # 0.0 Nucleated Red Blood Cells # 0.0 Sodium Level 139 Potassium Level 3.7 Chloride Level 101 Carbon Dioxide Level 26 Anion Gap 16 Blood Urea Nitrogen 9 Creatinine 0.70 Glucose Level 96 Calcium Level 9.1 Total Bilirubin 0.8 Direct Bilirubin 0.00 Indirect Bilirubin 0.8 Aspartate Amino Transf (AST/SGOT) 77 #H Alanine Aminotransferase (ALT/SGPT) 82 H Alkaline Phosphatase 91 Total Protein 7.9 Albumin 4.2 Globulin 3.70 H Albumin/Globulin Ratio 1.13 Lipase 462 H Medications Medications Current Medications Dextrose/Sodium Chloride (D5-1/2ns) 1,000 ml @ 75 mls/hr [id number] IV Last administered on 11/05/16 20:53; Admin Dose 75 MLS/HR; Start 11/04/16 at 09:40 Ondansetron HCl (Zofran Inj) 4 mg Q6H PRN IV NAUSEA AND/OR VOMITING Last administered on 11/06/16 01:43; Admin Dose 4 MG; Start 11/04/16 at 10:00 Acetaminophen (Tylenol Tab) 650 mg Q6H PRN PO PAIN LEVEL 1-3 OR FEVER; Start at 10:00 Morphine Sulfate (morphine) 2 mg Q4H PRN IV SEVERE PAIN LEVEL 7-10 Last administered on 11/06/16 16:05; Admin Dose 2 MG; Start 11/04/16 at 10:00 Docusate Sodium (Colace) 100 mg Q12H PRN PO CONSTIPATION; Start 11/04/16 at 10: 00 Pantoprazole 40 mg 40 mg DAILY@06 IV Last administered on 11/06/16 05:28; Admin Dose 40 MG; Start 11/05/16 at 06:00 Multivitamins/ Thiamine HCl/ Folic Acid/Sodium Chloride (Mvi-12 Adult/ Vitamin B1/Folic Acid/NS) 1,011.2 ml @ 100 mls/ hr DAILY@09 IVPB Last administered on 11/06/16 09:44; Admin Dose 100 MLS/HR; Start 11/05/16 at 09:00 Lorazepam (Ativan) 1 mg Q6H PRN IV AGITATION/ANXIETY; Start 11/04/16 at 17:00 Chlordiazepoxide (Librium) 25 mg TID PO Last administered on 11/06/16 12:10; Admin Dose 25 MG; Start 11/05/16 at 21:00 Morphine Sulfate (morphine) 2 mg Q2H PRN IV PAIN Last administered on 02:43; Admin Dose 2 MG; Start 11/04/16 at 19:00 MARIA DE JESUS DEL VALLE Nov 06, 2016 19:19
[2016-11-06 19:36] VITALS: BP 138/80; RESP 20
[2016-11-07] MEDS: morphine 2 MG INJ IV PRN ×4 (00:47→12:55)
[2016-11-07] MEDS: ONDANSETRON 4 MG INJ IV PRN ×3 (04:49→20:03)
[2016-11-07] MEDS: PANTOPRAZOLE 40 MG INJ IV SCH (05:46)
[2016-11-07] MEDS: CHLORDIAZEPOXIDE 25 MG CAP PO SCH ×3 (08:24→20:03)
[2016-11-07 08:44] VITALS: BP 133/77; RESP 17
[2016-11-07] MEDS: MULTIVITAMINS 10 ML, THIAMINE 100 MG, FOLIC ACID 1 MG in SOD CHLORIDE 0.9% 1,000 ML IVPB SCH (09:02)
[2016-11-07 10:28] LABS: ADD SCAN DIFF NO
[2016-11-07 10:31] LABS: BASOPHILS % 0.4 % (0.0-2.0); EOSINOPHILS # 0.2 10^3/ul (0.0-0.5); EOSINOPHILS % 3.4 % (0.0-7.0); HEMATOCRIT 40.5 % (42.0-52.0); HEMOGLOBIN 14.8 g/dl (14.0-18.0); LYMPHOCYTES # 1.1 10^3/ul (0.8-2.9); LYMPHOCYTES % 19.8 % (15.0-51.0); MEAN CORPUSCULAR HGB CONC 36.5 g/dl (32.0-37.0); MEAN CORPUSCULAR VOLUME 87.5 fl (82.0-101.0); MEAN PLATELET VOLUME 10.4 fl (7.4-10.4); MONOCYTE # 0.4 10^3/ul (0.3-0.9); MONOCYTES % 7.7 % (0.0-11.0); NEUTROPHIL # 3.8 10^3/ul (1.6-7.5); NEUTROPHILS % 68.5 % (39.0-77.0); PLATELET COUNT 208 10^3/UL (140-415); RED BLOOD COUNT 4.63 10^6/ul (4.70-6.10); RED CELL DISTRIBUTION WIDTH 12.3 % (11.5-14.5); WHITE BLOOD COUNT 5.6 10^3/ul (4.8-10.8)
[2016-11-07 10:54] LABS: ALBUMIN 4.2 g/dl (3.3-4.9)
[2016-11-07 10:57] LABS: ALBUMIN/GLOBULIN RATIO 1.23; BILIRUBIN,INDIRECT 0.5 mg/dl (0-1.1); BILIRUBIN,TOTAL 0.5 mg/dl (0.2-1.3); CALCIUM 9.1 mg/dl (8.4-10.2); CREATININE 0.78 mg/dl (0.61-1.24); TOTAL PROTEIN 7.6 g/dl (6.1-8.1)
--- NOTE | 2016-11-07 11:55 | CONS ---
Date/Time of Note Date/Time of Note DATE: 11/07/16 TIME: 11:51 Assessment/Plan Assessment/Plan Chief Complaint/Hosp Course Mr.Juan Luna is a 36-year-old male that presented to the emergency room secondary to abdominal pain, nausea, vomiting. Patient stated the symptoms started 3 days ago and progressively got worse. Patient reports slight fever. Patient denies chills, hematochezia,, hematemesis, sick contacts versus. Patient does report alcohol consumption. Patient states he drinks about a sixpack of beer every day. Patient reports previous episode of abdominal pain nearly 4 months ago. Patient has a history of inpatient treatment for pancreatitis secondary to alcohol consumption. Patient denies other chronic condition. At bedside patient reports diffuse abdominal pain. MRCP in process. Problems: Additional Assessment/Plan Pancreatitis Rule out choledocholithiasis, MRCP neg Nausea and pain control Advance diet as tolerated MRCP: 1. Fatty metamorphosis of the liver. 2. Normal bile ducts. 3. Acute pancreatitis. 4. Otherwise unremarkable study. ERCP not clinically indicated Monitor LFTs, amylase, lipase Alcohol abuse Management per Primary Encourage abstinence Further recommendations depend on clinical course Patient seen in collaboration with Dr. Mckenzie Consultation Date/Type/Reason Admit Date/Time Nov 04, 2016 at 05:36 Type of Consultation: Gastroenterology 24 HR Interval Summary Free Text/Dictation Reports slight 4/10 lower abdominal pain with palpation Denies n/v Exam/Review of Systems Vital Signs Vitals Vital Signs Date Time Temp Pulse Resp B/P Pulse Ox O2 Delivery O2 Flow Rate FiO2 11/07/16 08:44 98.1 58 17 133/77 98 11/04/16 12:30 Room Air Intake and Output 11/06/16 11/06/16 11/07/16 15:00 23:00 07:00 Intake Total 2260 ml 850 ml Output Total 2050 ml Balance 2260 ml -1200 ml Exam Constitutional: alert, oriented, well developed Psych: nl mood/affect Head: normocephalic Eyes: EOMI, nl conjunctiva, nl lids ENMT: nl external ears & nose, nl lips & teeth, nl nasal mucosa & septum Respiratory: clear to auscultation, normal air movement Cardiovascular: regular rate and rhythm Gastrointestinal: soft, slight RLQ tenderness Musculoskeletal: nl extremities to inspection Neurological: MOTOR VEHICLE TECHNICIAN II-XII intact Results Result Diagram: 11/07/16 1015 11/07/16 1015 Results 24 hrs Laboratory Tests Test 11/07/16 10:15 White Blood Count 5.6 Red Blood Count 4.63 L Hemoglobin 14.8 Hematocrit 40.5 L Mean Corpuscular Volume 87.5 Mean Corpuscular Hemoglobin 32.0 Mean Corpuscular Hemoglobin Concent 36.5 Red Cell Distribution Width 12.3 Platelet Count 208 Mean Platelet Volume 10.4 Neutrophils % 68.5 Lymphocytes % 19.8 Monocytes % 7.7 Eosinophils % 3.4 Basophils % 0.4 Nucleated Red Blood Cells % 0.0 Neutrophils # 3.8 Lymphocytes # 1.1 Monocytes # 0.4 Eosinophils # 0.2 Basophils # 0.0 Nucleated Red Blood Cells # 0.0 Sodium Level 142 Potassium Level 4.0 Chloride Level 101 Carbon Dioxide Level 28 Anion Gap 17 H Blood Urea Nitrogen 7 Creatinine 0.78 Glucose Level 112 Calcium Level 9.1 Total Bilirubin 0.5 Direct Bilirubin 0.00 Indirect Bilirubin 0.5 Aspartate Amino Transf (AST/SGOT) 69 H Alanine Aminotransferase (ALT/SGPT) 91 H Alkaline Phosphatase 92 Total Protein 7.6 Albumin 4.2 Globulin 3.40 H Albumin/Globulin Ratio 1.23 Lipase 420 H Medications Medications Current Medications Dextrose/Sodium Chloride (D5-1/2ns) 1,000 ml @ 75 mls/hr [id number] IV Last administered on 11/06/16 22:45; Admin Dose 75 MLS/HR; Start 11/04/16 at 09:40 Ondansetron HCl (Zofran Inj) 4 mg Q6H PRN IV NAUSEA AND/OR VOMITING Last administered on 11/07/16 04:49; Admin Dose 4 MG; Start 11/04/16 at 10:00 Acetaminophen (Tylenol Tab) 650 mg Q6H PRN PO PAIN LEVEL 1-3 OR FEVER; Start at 10:00 Morphine Sulfate (morphine) 2 mg Q4H PRN IV SEVERE PAIN LEVEL 7-10 Last administered on 11/07/16 09:02; Admin Dose 2 MG; Start 11/04/16 at 10:00 Docusate Sodium (Colace) 100 mg Q12H PRN PO CONSTIPATION; Start 11/04/16 at 10: 00 Pantoprazole 40 mg 40 mg DAILY@06 IV Last administered on 11/07/16 05:46; Admin Dose 40 MG; Start 11/05/16 at 06:00 Multivitamins/ Thiamine HCl/ Folic Acid/Sodium Chloride (Mvi-12 Adult/ Vitamin B1/Folic Acid/NS) 1,011.2 ml @ 100 mls/ hr DAILY@09 IVPB Last administered on 11/07/16 09:02; Admin Dose 100 MLS/HR; Start 11/05/16 at 09:00 Lorazepam (Ativan) 1 mg Q6H PRN IV AGITATION/ANXIETY; Start 11/04/16 at 17:00 Chlordiazepoxide (Librium) 25 mg TID PO Last administered on 11/07/16 08:24; Admin Dose 25 MG; Start 11/05/16 at 21:00 Morphine Sulfate (morphine) 2 mg Q2H PRN IV PAIN Last administered on 02:43; Admin Dose 2 MG; Start 11/04/16 at 19:00 MARIA DE JESUS DEL VALLE Nov 07, 2016 11:55
[2016-11-07] MEDS: HYDROCODONE/APAP (5/325) TAB PO PRN ×2 (17:17→21:13)
[2016-11-07] MEDS: DEXTROSE 5%-0.45% NACL 1,000 ML IV SCH ×2 (17:40→21:13)
--- NOTE | 2016-11-07 19:17 | PN ---
DATE: 11/07/2016 TIME OF EVALUATION: 11:30 a.m. SUBJECTIVE DATA: Complains of abdominal pain. Getting pain medication around the clock. Denies any nausea or vomiting. Tolerating a regular consistency diet. OBJECTIVE DATA: VITAL SIGNS: Temperature 98.1, pulse rate 58, respiratory rate 70, blood pressure 133/77, oxygen saturation 98% on room air. GENERAL: This is a well-built, well-nourished male lying in bed in no apparent distress. HEENT: Head normocephalic and atraumatic. Eyes: Anicteric sclerae. Conjunctivae clear. ENT: Nasal septum is midline. Oral mucosa is moist. NECK: Supple. No JVD noticed. RESPIRATORY: Bilaterally clear to auscultation. No adventitious breath sounds. No use of accessory muscles of respiration. CARDIAC: Regular rate and rhythm. No murmurs heard. ABDOMEN: Soft. Mild tenderness in the right lower quadrant. Bowel sounds positive in all 4 quadrants. GENITOURINARY: Exam deferred. EXTREMITIES: No cyanosis, no clubbing, no edema. Peripheral pulses are palpable. NEUROLOGIC: The patient is awake, alert and oriented. Cranial nerves are grossly intact. LABORATORY AND DIAGNOSTIC DATA: WBC 5.6, hemoglobin 14.8, hematocrit 40.5, platelet count 208, sodium 142, potassium 4.0, chloride 101, carbon dioxide 20, anion gap 70, BUN 7, creatinine 0.5, glucose 112, calcium 9.1, AST 16, ALT 61. Alkaline phosphatase 92, lipase 420. ASSESSMENT AND PLAN: 1. Alcoholic pancreatitis. Trend pancreatic enzyme levels. Improving. The patient continues to have some pain. Continue pain control. Continue IV hydration. 2. Ethanol abuse. The patient on tapering dose of Librium, Banana bag and p.r.n. IV benzodiazepines for any alcohol withdrawal delirium. 3. Fluid, electrolytes and nutrition. Continue regular diet as tolerated. 4. Deep venous thrombosis prophylaxis with bilateral sequential compression devices. 5. Gastrointestinal prophylaxis. Proton pump inhibitors. 6. Plan: Continue pain control. Trend pancreatic enzyme levels. Wean off pain medications. Await clearance from gastroenterology before discharge today. The case discussed with Dr. Nazario. RANDOLPH NAZARIO MD, AM/MISHA Conf#: [id number] DID#: [id number] MTDD
[2016-11-07 21:18] VITALS: BP 133/79; RESP 22
[2016-11-08] MEDS: HYDROCODONE/APAP (5/325) TAB PO PRN ×2 (01:29→09:53)
[2016-11-08] MEDS: morphine 2 MG INJ IV PRN (04:42)
[2016-11-08] MEDS: PANTOPRAZOLE 40 MG INJ IV SCH (05:32)
[2016-11-08 06:03] LABS: ADD SCAN DIFF NO
[2016-11-08 06:04] LABS: BASOPHILS % 0.5 % (0.0-2.0); EOSINOPHILS # 0.2 10^3/ul (0.0-0.5); EOSINOPHILS % 3.3 % (0.0-7.0); HEMATOCRIT 40.8 % (42.0-52.0); HEMOGLOBIN 14.8 g/dl (14.0-18.0); LYMPHOCYTES # 1.7 10^3/ul (0.8-2.9); MEAN CORPUSCULAR HEMOGLOBIN 31.4 pg (29.0-33.0); MEAN CORPUSCULAR HGB CONC 36.3 g/dl (32.0-37.0); MEAN CORPUSCULAR VOLUME 86.4 fl (82.0-101.0); MEAN PLATELET VOLUME 10.6 fl (7.4-10.4); MONOCYTE # 0.4 10^3/ul (0.3-0.9); MONOCYTES % 6.5 % (0.0-11.0); NEUTROPHIL # 4.1 10^3/ul (1.6-7.5); NEUTROPHILS % 63.5 % (39.0-77.0); PLATELET COUNT 233 10^3/UL (140-415); RED BLOOD COUNT 4.72 10^6/ul (4.70-6.10); RED CELL DISTRIBUTION WIDTH 12.1 % (11.5-14.5); WHITE BLOOD COUNT 6.5 10^3/ul (4.8-10.8)
[2016-11-08 06:23] LABS: ALBUMIN 4.2 g/dl (3.3-4.9)
[2016-11-08 06:24] LABS: POTASSIUM 3.3 mmol/L (3.5-5.1)
[2016-11-08 06:26] LABS: ALBUMIN/GLOBULIN RATIO 1.23; CREATININE 0.68 mg/dl (0.61-1.24); PHOSPHORUS 4.9 mg/dl (2.5-4.9); TOTAL PROTEIN 7.6 g/dl (6.1-8.1)
[2016-11-08 06:27] LABS: BILIRUBIN,INDIRECT 0.4 mg/dl (0-1.1); BILIRUBIN,TOTAL 0.4 mg/dl (0.2-1.3); CALCIUM 9.1 mg/dl (8.4-10.2)
[2016-11-08] MEDS: DEXTROSE 5%-0.45% NACL 1,000 ML IV SCH (07:00)
[2016-11-08 08:07] VITALS: BP 103/58; RESP 18
[2016-11-08] MEDS: CHLORDIAZEPOXIDE 25 MG CAP PO SCH ×2 (09:11→12:54)
[2016-11-08] MEDS ORDERED: POTASSIUM CHLORIDE (SR) 20 MEQ TAB PO STA (09:33)
[2016-11-08] MEDS: MULTIVITAMINS 10 ML, THIAMINE 100 MG, FOLIC ACID 1 MG in SOD CHLORIDE 0.9% 1,000 ML IVPB SCH (09:53)
[2016-11-08] MEDS ORDERED: LACTULOSE 30ML CUP PO ONE (11:00)
--- NOTE | 2016-11-08 11:32 | PDOCDIS ---
Discharge Instructions DIAGNOSIS Discharge Diagnosis: Alcoholic pancreatitis. CONDITION Patient Condition: Stable HOME CARE INSTRUCTIONS: Diet Instructions: Regular ACTIVITY: Activity Restrictions: No Restrictions FOLLOW UP/APPOINTMENTS Appointments Juan R Fox MD Specialty: Internal Medicine Office Address: [address] [place], [place] [id number] Office OTHER ORDERS: Other Orders: 1. Take a regular diet as tolerated. 2. Take medications as per prescription. 3. Avoid EtOH. 4. Resume activities as tolerated. 5. Follow-up with your primary care physician in 2 weeks. If you do not have a primary care physician, please call Dr. Juan R Fox's office. RANDOLPH MAJOR NP Nov 08, 2016 11:32
[2016-11-08] MEDS ORDERED: HYDR-3498 PO (11:34)
[2016-11-08] MEDS ORDERED: CHLO25CA9 PO (11:34)
[2016-11-08] MEDS ORDERED: CYAN1TAB20 PO (11:34)
--- NOTE | 2016-11-08 18:14 | DS ---
DATE OF ADMISSION: 11/04/2016 DATE OF DISCHARGE: 11/08/2016 FINAL DIAGNOSES: 1. Alcoholic pancreatitis. 2. Ethanol abuse. CONSULTATIONS: Dr. Hari Mckenzie, Gastroenterology. HOSPITAL COURSE: This is a 36-year-old male with past medical history of alcoholic pancreatitis, who continues to drink alcohol, who presented to [facility] Emergency Room secondary to having 2 days of abdominal pain with nausea and bilious vomiting. In the emergency room, the patient was noticed to have a lipase level of 4586. The patient also had underlying leukocytosis. Provided the patient's history of present illness and the diagnostic findings, a clinical decision was made to admit the patient to inpatient setting to have him further evaluated. The patient was admitted to inpatient medical/surgical floor. The patient was kept n.p.o. He was started on adequate analgesics. The patient was started on IV fluids. A gastroenterology consult was obtained. The patient's pancreatitis could have been most probably secondary to alcohol abuse. The patient's fasting lipid panel was within normal limits. The patient's abdominal MRI was positive for fatty metamorphosis of the liver and did show normal bile ducts, and evidence of acute pancreatitis. The patient's etiology of the pancreatitis could be most probably ETOH abuse. The patient's pancreatic enzymes levels were trended and the patient was started on clear liquid diet, and the patient's diet was advanced as tolerated to a regular consistency diet. The patient was maintained on a daily banana bag for his underlying history of alcohol abuse. The patient was continued on tapering dose of Librium along with IV p.r.n. benzodiazepines for any acute alcohol withdrawal, delirium. The patient had a stable hospital course. The patient's diet was advanced as tolerated to a regular consistency diet and he was able to tolerate this without any gastrointestinal symptoms. The patient's pancreatic lipase level was noted to be trending down. The patient was cleared by gastroenterology to be discharged home. DISCHARGE ASSESSMENT/PLAN: The patient will be discharged home today. The patient was instructed to take medications as per prescription. The patient was instructed to avoid taking ETOH. He was instructed to resume activities as tolerated. He was instructed to follow up with his primary care primary care physician in 2 weeks. If he does not have a primary care physician, he was instructed to call Dr. Juan R Fox's office. The patient verbalized understanding of his discharge instructions. CONDITION AT DISCHARGE: Stable. DISCHARGE MEDICATIONS: 1. Chlordiazepoxide 25 mg p.o. t.i.d. x3 days. 2. Vitamin B complex 1 tablet p.o. daily. 3. [place] 5/325 one tablet p.o. q. 4 hours p.r.n. pain (#20 tablets). PERTINENT LABORATORY AND DIAGNOSTIC DATA: 1. Abdominal MRI. Fatty metamorphosis of the liver. Normal bile ducts. Acute pancreatitis. 2. CT scan of the abdomen and pelvis with pancreatitis with moderate surrounding stranding and mild free fluid. Fatty infiltration of the liver. Moderate amount of pelvic free fluid. Mild bibasilar atelectasis. 3. Latest CBC: WBC 6.5, hemoglobin 14.8, hematocrit 40.8, platelet count 233. 4. Latest BMP: Sodium 141, potassium 3.3, chloride 101, carbon dioxide 25, anion gap 18, BUN 9, creatinine 0.6, glucose 124, calcium 9.0, phosphorus 4.9, magnesium 2.0. Hemoglobin A1c 4.8. 5. Fasting lipid panel: Triglycerides 99, total cholesterol 182, LDL 120, HDL 42. 6. Latest lipase level 385. At this time, I would like to thank all the consultants for seeing the patient and providing clinical recommendations. The case and management of this patient were discussed with Dr. Nazario. Approximately 35 minutes was spent coordinating the discharge on this patient. RANDOLPH NAZARIO MD AM/NTS Conf#: [id number] DID#: [id number] CC: PEDRO LUIS NAZARIO MD;*EndCC* MTDD
== END 2016-11-08 14:20 | disposition home or self-care (01) | DRG 440 ==
LOC: FTE 23:06 → PP2 11-04 05:36
PROVIDERS: ADMIT Family Medicine; ATTEND Family Medicine
DX: K85.20 Alcohol induced acute pancreatitis without necrosis or infection (principal); F10.20 Alcohol dependence, uncomplicated
CPT/HCPCS: 36415; 74176; 74181; 80053; 80061; 81001; 81003; 82150; 82652; 83036; 83690; 83735; 84100; 85025; 90686; 96374; 96375; C9113; J2270; J2405; J2543; J3411; J7030; J7042

== ENCOUNTER 2018-02-02 10:55 | Inpatient (IN) | END 2018-02-05 11:15 | disposition home or self-care (01) | DRG 440 ==